=== PATIENT | male | born 1960 | race Two or more races ===

== ENCOUNTER 2019-06-14 14:08 | Emergency (ER) | payer SELFPAY ==
[~2019-06-14] VITALS: Ht 165.1 cm; Wt 99.8 kg
[2019-06-14 14:22] VITALS: BP 133/88
[2019-06-14] MEDS ORDERED: SODIUM CHLORIDE 0.9% 1,000 ML IV ONE (15:15)
[2019-06-14] MEDS ORDERED: KETOROLAC TROMETH 30 MG/ML 1ML VIAL IV ONE (15:15)
[2019-06-14 15:35] LABS: Urine Bacteria NONE SEEN /hpf (None Seen); Urine Blood Negative /uL (Negative); Urine Mucus FEW (None Seen); Urine Specific Gravity 1.039 (1.001-1.035); Urine WBC 1 /hpf (0 - 3)
[2019-06-14] MEDS ORDERED: LORazepam 0.5 MG TAB ONE (15:45)
[2019-06-14] MEDS ORDERED: LORazepam 0.5 MG TAB PO ONE (15:45)
== END 2019-06-14 16:40 | disposition left against medical advice (07) ==
LOC: ER 14:08
DX: F41.9 Anxiety disorder, unspecified (principal); R42 Dizziness and giddiness; E78.5 Hyperlipidemia, unspecified; F17.210 Nicotine dependence, cigarettes, uncomplicated; Z88.0 Allergy status to penicillin; Z53.29 Procedure and treatment not carried out because of patient's decision for other reasons
CPT/HCPCS: 81001; 93005

== ENCOUNTER 2020-04-29 01:16 | Emergency (ER) | payer MEDICAID, OTHER ==
[~2020-04-29] VITALS: Ht 172.7 cm; Wt 81.6 kg
[2020-04-29 03:03] VITALS: BP 124/84
[2020-04-29 03:41] LABS: Basophils # (auto) 0.1 10 ^3/uL (0-0.2); Basophils % (auto) 0.8 % (0.0-2.0); Eosinophils # (auto) 0.2 10 ^3/uL (0-0.8); Eosinophils % (auto) 2.5 % (0.0-7.0); Hematocrit 47.9 % (41.0-53.0); Hemoglobin 16.1 g/dL (13.5-17.5); Lymphocytes # (auto) 2.3 10 ^3/uL (0.4-5.4); Lymphocytes % (auto) 36.2 % (10.0-50.0); Mean Corpuscular Hemoglobin 30.8 pg (28.0-32.0); Mean Corpuscular Hgb Conc. 33.7 g/dL (32.0-36.0); Mean Corpuscular Volume 91.4 fL (80.0-100.0); Monocytes # (auto) 0.6 10 ^3/uL (0-1.3); Neutrophils # (auto) 3.3 10 ^3/uL (1.6-8.6); Neutrophils % (auto) 51.5 % (37.0-80.0); Nucleated Red Blood Cells % 5.6 %; Platelet Count (auto) 180 10^3/uL (140-450); Red Blood Cells 5.23 10^6/uL (4.5-5.90); Red Cell Distribution Width 12.8 % (11.8-14.3); White Blood Cell 6.4 10^3/uL (4.4-10.8)
[2020-04-29 03:47] LABS: Urine Bacteria NONE SEEN /hpf (None Seen); Urine Blood Negative /uL (Negative); Urine Mucus FEW (None Seen); Urine Specific Gravity 1.018 (1.001-1.035); Urine WBC <1 /hpf (0 - 3)
[2020-04-29 03:56] LABS: INR 1.09 (0.9-1.15); Partial Thromboplastin Time 29.7 sec (23.0-31.2)
[2020-04-29 03:57] LABS: Albumin 3.9 g/dL (3.4-5.0); Calcium 8.5 mg/dL (8.5-10.1); Potassium 3.8 mmol/L (3.5-5.1)
[2020-04-29 04:01] LABS: BUN/Creatinine Ratio 9.4
[2020-04-29] MEDS ORDERED: HYDROcodone-ACET 5/325MG TAB PO ONE (05:00)
== END 2020-04-29 05:01 | disposition home or self-care (01) ==
LOC: EDBD 01:16 → EDUNIT# 01:16 → ER 01:21
DX: J01.00 Acute maxillary sinusitis, unspecified (principal); M47.812 Spondylosis without myelopathy or radiculopathy, cervical region
CPT/HCPCS: 36415; 70450; 80053; 81001; 85025; 85610; 85730

== ENCOUNTER 2020-05-26 15:17 | Emergency (ER) | payer MEDICAID, OTHER ==
[~2020-05-26] VITALS: Ht 167.6 cm; Wt 93.4 kg
[2020-05-26 16:55] LABS: Basophils # (auto) 0.1 10 ^3/uL (0-0.2); Basophils % (auto) 1.1 % (0.0-2.0); Eosinophils # (auto) 0.1 10 ^3/uL (0-0.8); Eosinophils % (auto) 2.2 % (0.0-7.0); Hematocrit 48.9 % (41.0-53.0); Hemoglobin 16.8 g/dL (13.5-17.5); Lymphocytes # (auto) 2.4 10 ^3/uL (0.4-5.4); Lymphocytes % (auto) 37.7 % (10.0-50.0); Mean Corpuscular Hemoglobin 31.4 pg (28.0-32.0); Mean Corpuscular Hgb Conc. 34.3 g/dL (32.0-36.0); Mean Corpuscular Volume 91.4 fL (80.0-100.0); Monocytes # (auto) 0.6 10 ^3/uL (0-1.3); Monocytes % (auto) 9.3 % (0.0-12.0); Neutrophils # (auto) 3.1 10 ^3/uL (1.6-8.6); Neutrophils % (auto) 49.7 % (37.0-80.0); Nucleated Red Blood Cells % 0.1 %; Platelet Count (auto) 178 10^3/uL (140-450); Red Blood Cells 5.35 10^6/uL (4.5-5.90); White Blood Cell 6.2 10^3/uL (4.4-10.8)
[2020-05-26 17:12] LABS: Calcium 8.4 mg/dL (8.5-10.1); Potassium 3.8 mmol/L (3.5-5.1)
[2020-05-26 17:17] LABS: BUN/Creatinine Ratio 14.9; Bilirubin, Total 0.5 mg/dL (0.2-1.0); Total Protein 7.4 g/dL (6.4-8.2); Uric Acid 6.2 mg/dL (3.5-7.2)
[2020-05-26 18:01] VITALS: BP 147/93
== END 2020-05-26 18:04 | disposition home or self-care (01) ==
LOC: ER 15:17
DX: M13.871 Other specified arthritis, right ankle and foot (principal); R74.8 Abnormal levels of other serum enzymes; E78.5 Hyperlipidemia, unspecified; Z88.0 Allergy status to penicillin
CPT/HCPCS: 36415; 73630; 80053; 84550; 85025; 93971

== ENCOUNTER 2020-08-20 18:31 | Emergency (ER) | payer OTHER ==
[~2020-08-20] VITALS: Ht 167.6 cm; Wt 95.3 kg
[2020-08-20 18:55] VITALS: BP 157/95
[2020-08-20 23:04] LABS: Basophils # (auto) 0.1 10 ^3/uL (0-0.2); Basophils % (auto) 1.2 % (0.0-2.0); Eosinophils # (auto) 0.2 10 ^3/uL (0-0.8); Hematocrit 46.4 % (41.0-53.0); Lymphocytes # (auto) 2.8 10 ^3/uL (0.4-5.4); Lymphocytes % (auto) 44.5 % (10.0-50.0); Mean Corpuscular Hemoglobin 31.8 pg (28.0-32.0); Mean Corpuscular Hgb Conc. 34.5 g/dL (32.0-36.0); Mean Corpuscular Volume 92.4 fL (80.0-100.0); Monocytes # (auto) 0.6 10 ^3/uL (0-1.3); Monocytes % (auto) 9.2 % (0.0-12.0); Neutrophils # (auto) 2.6 10 ^3/uL (1.6-8.6); Neutrophils % (auto) 42.1 % (37.0-80.0); Nucleated Red Blood Cells % 0.2 %; Platelet Count (auto) 188 10^3/uL (140-450); Red Blood Cells 5.02 10^6/uL (4.5-5.90); White Blood Cell 6.2 10^3/uL (4.4-10.8)
[2020-08-20 23:20] LABS: Albumin 3.9 g/dL (3.4-5.0); Anion Gap 5 (5-15); BUN/Creatinine Ratio 15.6; Blood Urea Nitrogen 12 mg/dL (7-18); Carbon Dioxide 27 mmol/L (21-32); Chloride 109 mmol/L (98-107); GFR African American 133 mL/min; GFR Non-African American 110 mL/min; Glucose 83 mg/dL (74-106); Potassium 3.7 mmol/L (3.5-5.1); Sodium 141 mmol/L (136-145)
[2020-08-20 23:23] LABS: INR 1.07 (0.9-1.15)
[2020-08-20 23:25] LABS: Alanine Aminotransferase 42 U/L (16-61); Alkaline Phosphatase 111 U/L (45-117); Aspartate Aminotransferase 27 U/L (15-37); Bilirubin, Total 0.8 mg/dL (0.2-1.0); Total Protein 7.2 g/dL (6.4-8.2)
== END 2020-08-21 01:16 | disposition home or self-care (01) ==
LOC: ER 18:32
DX: G62.9 Polyneuropathy, unspecified (principal); E78.5 Hyperlipidemia, unspecified; Z88.0 Allergy status to penicillin; Z87.891 Personal history of nicotine dependence
CPT/HCPCS: 36415; 73590; 80053; 84484; 85025; 85379; 85610; 93971; 99285; J7030

== ENCOUNTER 2020-12-17 16:10 | Emergency (ER) | payer OTHER ==
[~2020-12-17] VITALS: Ht 167.6 cm; Wt 95.3 kg
[2020-12-17 16:12] VITALS: BP 150/101
== END 2020-12-17 18:24 | disposition home or self-care (01) ==
LOC: ER 16:13
DX: M79.671 Pain in right foot (principal); G89.29 Other chronic pain
CPT/HCPCS: 93971

== ENCOUNTER 2021-04-20 12:30 | Emergency (ER) | payer OTHER ==
[~2021-04-20] VITALS: Ht 165.1 cm; Wt 99.8 kg
[2021-04-20 12:37] VITALS: BP 133/89
[2021-04-20 13:36] LABS: Basophils # (auto) 0 10 ^3/uL (0-0.2); Eosinophils # (auto) 0.2 10 ^3/uL (0-0.8); Eosinophils % (auto) 3.6 % (0.0-7.0); Hematocrit 46.7 % (41.0-53.0); Hemoglobin 16.5 g/dL (13.5-17.5); Lymphocytes # (auto) 1.9 10 ^3/uL (0.4-5.4); Lymphocytes % (auto) 41.8 % (10.0-50.0); Mean Corpuscular Hemoglobin 32.4 pg (28.0-32.0); Mean Corpuscular Hgb Conc. 35.2 g/dL (32.0-36.0); Monocytes # (auto) 0.5 10 ^3/uL (0-1.3); Monocytes % (auto) 10.6 % (0.0-12.0); Nucleated Red Blood Cells % 0.1 %; Red Blood Cells 5.07 10^6/uL (4.5-5.90); Red Cell Distribution Width 13.5 % (11.8-14.3); White Blood Cell 4.6 10^3/uL (4.4-10.8)
[2021-04-20 13:52] LABS: Acetaminophen < 2.0 ug/mL (10-30); Albumin 3.7 g/dL (3.4-5.0); Calcium 8.6 mg/dL (8.5-10.1); Potassium 3.9 mmol/L (3.5-5.1); Salicylate < 1.7 mg/dL (2.8-20.0)
[2021-04-20 13:57] LABS: BUN/Creatinine Ratio 12.5; Bilirubin, Total 0.8 mg/dL (0.2-1.0); Total Protein 7.5 g/dL (6.4-8.2)
== END 2021-04-20 16:53 | disposition home or self-care (01) ==
LOC: ER 12:30
DX: T42.4X1A Poisoning by benzodiazepines, accidental (unintentional), initial encounter (principal); M79.604 Pain in right leg; R53.1 Weakness; E78.5 Hyperlipidemia, unspecified; Z88.0 Allergy status to penicillin; Z87.891 Personal history of nicotine dependence; Y92.9 Unspecified place or not applicable
CPT/HCPCS: 36415; 80053; 80329; 85025; 93005; 93971

== ENCOUNTER 2021-07-07 15:19 | Emergency (ER) | payer MEDICAID, OTHER ==
[~2021-07-07] VITALS: Ht 167.6 cm; Wt 99.8 kg
[2021-07-07 16:04] LABS: Urine Bacteria NONE SEEN /hpf (None Seen); Urine Blood Negative /uL (Negative); Urine Mucus FEW (None Seen); Urine Specific Gravity 1.035 (1.001-1.035); Urine WBC 1 /hpf (0 - 3)
[2021-07-07 16:36] LABS: Basophils # (auto) 0.1 10 ^3/uL (0-0.2); Basophils % (auto) 0.9 % (0.0-2.0); Eosinophils # (auto) 0.1 10 ^3/uL (0-0.8); Eosinophils % (auto) 1.7 % (0.0-7.0); Hematocrit 49.4 % (41.0-53.0); Hemoglobin 16.9 g/dL (13.5-17.5); Lymphocytes # (auto) 2.7 10 ^3/uL (0.4-5.4); Lymphocytes % (auto) 39.5 % (10.0-50.0); Mean Corpuscular Hemoglobin 31.5 pg (28.0-32.0); Mean Corpuscular Hgb Conc. 34.2 g/dL (32.0-36.0); Mean Corpuscular Volume 92.2 fL (80.0-100.0); Monocytes # (auto) 0.6 10 ^3/uL (0-1.3); Monocytes % (auto) 8.2 % (0.0-12.0); Neutrophils # (auto) 3.4 10 ^3/uL (1.6-8.6); Neutrophils % (auto) 49.7 % (37.0-80.0); Red Blood Cells 5.35 10^6/uL (4.5-5.90); White Blood Cell 6.9 10^3/uL (4.4-10.8)
[2021-07-07 16:54] LABS: Albumin 3.9 g/dL (3.4-5.0); Calcium 8.7 mg/dL (8.5-10.1); Potassium 3.7 mmol/L (3.5-5.1)
[2021-07-07 16:59] LABS: BUN/Creatinine Ratio 12.6; Total Protein 7.6 g/dL (6.4-8.2)
[2021-07-07 19:00] VITALS: BP 126/87
== END 2021-07-07 19:04 | disposition home or self-care (01) ==
LOC: ER 15:19
DX: R10.32 Left lower quadrant pain (principal); E78.5 Hyperlipidemia, unspecified; Z88.0 Allergy status to penicillin; Z87.891 Personal history of nicotine dependence
CPT/HCPCS: 36415; 74176; 80053; 81001; 83690; 85025

== ENCOUNTER 2021-11-16 21:14 | Emergency (ER) | payer MEDICAID, OTHER ==
[~2021-11-16] VITALS: Ht 170.2 cm; Wt 77.1 kg
[2021-11-16 21:23] VITALS: BP 151/96
== END 2021-11-17 02:51 | disposition left against medical advice (07) ==
LOC: ER 21:19
DX: M79.661 Pain in right lower leg (principal); F41.9 Anxiety disorder, unspecified; E78.5 Hyperlipidemia, unspecified; Z88.0 Allergy status to penicillin
CPT/HCPCS: 93971

== ENCOUNTER 2021-11-23 11:30 | Inpatient (IN) | payer OTHER ==
[~2021-11-23] VITALS: Ht 167.6 cm; Wt 98.0 kg
[2021-11-23] MEDS ORDERED: ONDANSETRON HCL 4 MG/2 ML VIAL IV ONE (12:00)
[2021-11-23] MEDS ORDERED: SODIUM CHLORIDE 0.9% 1,000 ML IV ONE (12:00)
[2021-11-23] MEDS ORDERED: diphenhdrAMINE HCL 50 MG/1 ML VL IV ONE (12:15)
[2021-11-23] MEDS ORDERED: diphenhdrAMINE HCL 25 MG CAP PO ONE (12:15)
[2021-11-23 13:24] LABS: Basophils # (auto) 0.1 10 ^3/uL (0-0.2); Eosinophils # (auto) 0.1 10 ^3/uL (0-0.8); Eosinophils % (auto) 1.1 % (0.0-7.0); Hematocrit 50.8 % (41.0-53.0); Hemoglobin 17.6 g/dL (13.5-17.5); Lymphocytes # (auto) 2.6 10 ^3/uL (0.4-5.4); Lymphocytes % (auto) 31.7 % (10.0-50.0); Mean Corpuscular Hemoglobin 31.9 pg (28.0-32.0); Mean Corpuscular Hgb Conc. 34.7 g/dL (32.0-36.0); Mean Corpuscular Volume 92.1 fL (80.0-100.0); Monocytes # (auto) 0.8 10 ^3/uL (0-1.3); Monocytes % (auto) 9.9 % (0.0-12.0); Neutrophils # (auto) 4.6 10 ^3/uL (1.6-8.6); Neutrophils % (auto) 56.3 % (37.0-80.0); Nucleated Red Blood Cells % 0.1 %; Red Blood Cells 5.52 10^6/uL (4.5-5.90); Red Cell Distribution Width 13.7 % (11.8-14.3); White Blood Cell 8.1 10^3/uL (4.4-10.8)
[2021-11-23 13:40] LABS: Albumin 4.5 g/dL (3.4-5.0); BUN/Creatinine Ratio 13.4; Calcium 9.4 mg/dL (8.5-10.1); Potassium 3.9 mmol/L (3.5-5.1)
[2021-11-23 13:42] LABS: Urine Bacteria NONE SEEN /hpf (None Seen); Urine Blood Negative /uL (Negative); Urine Hyaline Cast MANY /lpf (0 - 2); Urine Mucus FEW (None Seen); Urine Specific Gravity 1.038 (1.001-1.035); Urine WBC 5 /hpf (0 - 3)
[2021-11-23 13:45] LABS: Bilirubin, Total 1.6 mg/dL (0.2-1.0); Total Protein 8.1 g/dL (6.4-8.2)
[2021-11-23] MEDS ORDERED: traMADol HCL 50 MG TAB PO ONE (13:45)
[2021-11-23] MEDS ORDERED: IOHEXOL 300 MG/ML 100ML BOTTLE IJ ONE (14:11)
[2021-11-23] MEDS ORDERED: MORPHINE SULFATE INJECTION 2 MG/ML SYRG IV PRN (16:45)
[2021-11-23] MEDS ORDERED: NITROGLYCERIN 0.4 MG SL TAB SL PRN (16:45)
[2021-11-23] MEDS ORDERED: DOCUSATE SOD 100 MG CAP PO PRN (18:30)
[2021-11-23] MEDS ORDERED: TEMAZEPAM 15 MG CAP PO PRN (18:30)
[2021-11-23] MEDS ORDERED: LORazepam 0.5 MG TAB PO PRN (18:30)
[2021-11-23] MEDS ORDERED: HYDROcodone-ACET 5/325MG TAB PO PRN (18:30)
[2021-11-23] MEDS: SODIUM CHLORIDE 0.9% 1,000 ML IV SCH (18:42)
[2021-11-23] MEDS ORDERED: hydrOXYzine HCL 25 MG/ML VL IM PRN (18:45)
[2021-11-23] MEDS: ACETAMINOPHEN 325 MG TAB PO PRN (18:45)
[2021-11-23 19:01] LABS: Amphetamine Screen, Urine NEGATIVE (NEGATIVE); Barbiturate Scree,Urine NEGATIVE (NEGATIVE); Benzodiazephine Screen, Urine NEGATIVE (NEGATIVE); Cannabinoid Screen, Urine NEGATIVE (NEGATIVE); Cocaine Screen, Urine NEGATIVE (NEGATIVE); Opiate Scree,Urine NEGATIVE (NEGATIVE); Phencyclidine Screen, Urine NEGATIVE (NEGATIVE)
[2021-11-23] MEDS ORDERED: ATOR40TA52 PO (21:59)
[2021-11-23] MEDS ORDERED: TRAM-711 PO (21:59)
[2021-11-23] MEDS ORDERED: PEN400T PO (21:59)
[2021-11-23] MEDS ORDERED: APIX5TAB PO (21:59)
[2021-11-23] MEDS: hydrOXYzine 25 MG TAB or CAP PO PRN (22:46)
[2021-11-23 23:22] VITALS: BP 134/87
[2021-11-23] MEDS ORDERED: ASPI-543 PO (23:45)
[2021-11-23] MEDS ORDERED: TAMS0.4C36 PO (23:45)
[2021-11-23] MEDS ORDERED: GABA400C PO (23:45)
[2021-11-24] VITALS (8 sets, daily range): BP systolic 126–145; BP diastolic 74–95
[2021-11-24] MEDS: ACETAMINOPHEN 325 MG TAB PO PRN (00:40)
[2021-11-24] MEDS: SODIUM CHLORIDE 0.9% 1,000 ML IV SCH (00:52)
[2021-11-24] MEDS: ONDANSETRON HCL 4 MG/2 ML VIAL IV PRN ×3 (02:45→17:27)
[2021-11-24] MEDS: hydrOXYzine 25 MG TAB or CAP PO PRN (05:17)
[2021-11-24 09:16] LABS: Basophils # (auto) 0.1 10 ^3/uL (0-0.2); Eosinophils # (auto) 0.1 10 ^3/uL (0-0.8); Eosinophils % (auto) 1.8 % (0.0-7.0); Hematocrit 45.8 % (41.0-53.0); Hemoglobin 15.9 g/dL (13.5-17.5); Lymphocytes % (auto) 36.3 % (10.0-50.0); Mean Corpuscular Hemoglobin 32.1 pg (28.0-32.0); Mean Corpuscular Hgb Conc. 34.8 g/dL (32.0-36.0); Mean Corpuscular Volume 92.3 fL (80.0-100.0); Monocytes # (auto) 0.4 10 ^3/uL (0-1.3); Monocytes % (auto) 6.9 % (0.0-12.0); Nucleated Red Blood Cells % 0.2 %; Red Blood Cells 4.96 10^6/uL (4.5-5.90); Red Cell Distribution Width 13.6 % (11.8-14.3); White Blood Cell 5.5 10^3/uL (4.4-10.8)
[2021-11-24 09:54] LABS: Albumin 3.5 g/dL (3.4-5.0); Potassium 4.1 mmol/L (3.5-5.1)
[2021-11-24 10:02] LABS: Bilirubin, Total 1.2 mg/dL (0.2-1.0); Calcium 7.9 mg/dL (8.5-10.1); Total Protein 6.7 g/dL (6.4-8.2)
[2021-11-24] MEDS ORDERED: traMADol HCL 50 MG TAB PO PRN ×2 (11:30→11:45)
[2021-11-24] MEDS ORDERED: APIXABAN 5 MG TAB PO SCH (12:00)
[2021-11-24 14:44] LABS: Cholesterol 95 mg/dL (< 200); Triglycerides 99 mg/dL (< 150)
[2021-11-24 14:47] LABS: HDL Cholesterol 34 mg/dL (40-59); LDL Cholesterol 50 mg/dL (< 100)
[2021-11-24] MEDS ORDERED: HYDR1CAP27 PO (16:00)
[2021-11-24] MEDS ORDERED: DULO20CA PO (16:00)
[2021-11-24] MEDS ORDERED: TAMSULOSIN HYDROCHLORIDE 0.4 MG CAP PO SCH (18:00)
[2021-11-24] MEDS ORDERED: GABAPENTIN 400 MG CAP PO SCH (22:00)
== END 2021-11-24 17:50 | disposition home or self-care (01) | DRG 111 ==
LOC: ER 11:30 → TELE 16:45 → TELE-WESTW 22:01
PROVIDERS: ADMIT Internal Medicine; ATTEND Internal Medicine
DX: R42 Dizziness and giddiness (principal); E78.5 Hyperlipidemia, unspecified; R07.9 Chest pain, unspecified; F32.A Depression, unspecified; G89.29 Other chronic pain; M19.90 Unspecified osteoarthritis, unspecified site; Z20.822 Contact with and (suspected) exposure to COVID-19; R51.9 Headache, unspecified; F41.0 Panic disorder [episodic paroxysmal anxiety]; Z79.01 Long term (current) use of anticoagulants; Z80.9 Family history of malignant neoplasm, unspecified; Z83.3 Family history of diabetes mellitus; Z86.718 Personal history of other venous thrombosis and embolism; Z87.891 Personal history of nicotine dependence; Z88.0 Allergy status to penicillin
CPT/HCPCS: 36415; 70450; 71275; 80053; 80061; 80307; 81001; 83880; 84484; 85025; 85379; 87081; 87426; 93005; 93306; 93886; 96374; 96375; 97163; G0378; J2405

== ENCOUNTER 2022-02-24 19:06 | Emergency (ER) | payer OTHER ==
[~2022-02-24] VITALS: Ht 167.6 cm; Wt 98.4 kg
[~2022-02-24 19:06] MED LIST: APIX5TAB PO; ASPI-543 PO; ATOR40TA52 PO; DULO20CA PO; GABA400C PO; HYDR1CAP27 PO; PEN400T PO; TAMS0.4C36 PO; TRAM-711 PO
[2022-02-24 22:19] VITALS: BP 124/93
== END 2022-02-24 22:40 | disposition home or self-care (01) ==
LOC: ER 19:11
DX: R25.2 Cramp and spasm (principal); M79.605 Pain in left leg; F32.9 Major depressive disorder, single episode, unspecified; E78.5 Hyperlipidemia, unspecified; Z87.891 Personal history of nicotine dependence
CPT/HCPCS: 93971

== ENCOUNTER 2022-04-27 12:29 | Emergency (ER) | payer OTHER ==
[~2022-04-27] VITALS: Ht 170.2 cm; Wt 95.4 kg
[2022-04-27 14:19] LABS: Basophils # (auto) 0.1 10 ^3/uL (0-0.2); Eosinophils # (auto) 0.2 10 ^3/uL (0-0.8); Eosinophils % (auto) 2.7 % (0.0-7.0); Hematocrit 43.6 % (41.0-53.0); Hemoglobin 14.6 g/dL (13.5-17.5); Lymphocytes # (auto) 2.1 10 ^3/uL (0.4-5.4); Lymphocytes % (auto) 28.8 % (10.0-50.0); Mean Corpuscular Hgb Conc. 33.4 g/dL (32.0-36.0); Mean Corpuscular Volume 92.8 fL (80.0-100.0); Monocytes # (auto) 0.6 10 ^3/uL (0-1.3); Monocytes % (auto) 8.4 % (0.0-12.0); Neutrophils # (auto) 4.3 10 ^3/uL (1.6-8.6); Neutrophils % (auto) 59.1 % (37.0-80.0); Nucleated Red Blood Cells % 0.1 %; Red Cell Distribution Width 12.6 % (11.8-14.3); White Blood Cell 7.2 10^3/uL (4.4-10.8)
[2022-04-27 14:42] LABS: Albumin 3.6 g/dL (3.4-5.0); Calcium 8.5 mg/dL (8.5-10.1); Potassium 4.3 mmol/L (3.5-5.1)
[2022-04-27 14:46] LABS: BUN/Creatinine Ratio 13.1; Bilirubin, Total 0.5 mg/dL (0.2-1.0); Total Protein 7.1 g/dL (6.4-8.2)
[2022-04-27] MEDS ORDERED: SULF400T11 PO (14:52)
[2022-04-27 15:00] VITALS: BP 118/64
[2022-04-27 15:49] LABS: Urine Bacteria FEW /hpf (None Seen); Urine Blood 3+ /uL (Negative); Urine Mucus FEW (None Seen); Urine Specific Gravity 1.027 (1.001-1.035); Urine WBC 121 /hpf (0 - 3)
== END 2022-04-27 15:40 | disposition home or self-care (01) ==
LOC: ER 12:29
DX: R31.9 Hematuria, unspecified (principal); N40.0 Benign prostatic hyperplasia without lower urinary tract symptoms; E78.5 Hyperlipidemia, unspecified; Z87.891 Personal history of nicotine dependence; Z79.82 Long term (current) use of aspirin; Z79.899 Other long term (current) drug therapy; Z88.0 Allergy status to penicillin
CPT/HCPCS: 36415; 74176; 80053; 81001; 84484; 85025

== ENCOUNTER → 2022-11-07 | Emergency (ER) | payer OTHER ==
[~2022-11-07] VITALS: Ht 170.2 cm; Wt 100.0 kg
[~2022-11-07] MED LIST changes: +SULF400T11 PO
[2022-11-07 10:20] VITALS: BP 115/88
[2022-11-07 10:50] LABS: Urine WBC None Seen /hpf (0 - 3)
[2022-11-07 11:04] LABS: Urine Bacteria NONE SEEN /hpf (None Seen); Urine Blood Negative /uL (Negative); Urine Hyaline Cast FEW /lpf (0 - 2); Urine Specific Gravity 1.011 (1.001-1.035)
== END | disposition left against medical advice (07) ==
LOC: ER 09:58
DX: R35.0 Frequency of micturition (principal); R10.30 Lower abdominal pain, unspecified; M79.671 Pain in right foot; Z53.21 Procedure and treatment not carried out due to patient leaving prior to being seen by health care provider
CPT/HCPCS: 81001; 93005

== ENCOUNTER 2023-08-07 17:27 | Emergency (ER) | payer OTHER ==
[~2023-08-07] VITALS: Ht 167.6 cm; Wt 103.2 kg
[~2023-08-07 17:27] MED LIST changes: +PANT40TA2 PO
[2023-08-07 18:15] LABS: Urine Bacteria NONE SEEN /hpf (None Seen); Urine Blood Negative /uL (Negative); Urine Clarity Clear (Clear); Urine Color Yellow (Yellow); Urine Mucus FEW (None Seen); Urine Protein, UAD Negative (Negative); Urine Specific Gravity 1.028 (1.001-1.035); Urine Urobilinogen Normal (Negative); Urine WBC 1 /hpf (0 - 3); Urine pH 5.5 (5.0-8.0)
[2023-08-07 22:07] LABS: Alanine Aminotransferase 51 U/L (7-40); Alkaline Phosphatase 100 U/L (46-116); Basophils # (auto) 0.1 10 ^3/uL (0-0.2); Basophils % (auto) 0.8 % (0.0-2.0); Eosinophils # (auto) 0.2 10 ^3/uL (0-0.8); Eosinophils % (auto) 2.3 % (0.0-7.0); Hematocrit 48.1 % (41.0-53.0); Hemoglobin 16.7 g/dL (13.5-17.5); Lymphocytes # (auto) 2.5 10 ^3/uL (0.4-5.4); Lymphocytes % (auto) 30.5 % (10.0-50.0); Mean Corpuscular Hgb Conc. 34.6 g/dL (32.0-36.0); Mean Corpuscular Volume 92.4 fL (80.0-100.0); Monocytes # (auto) 0.9 10 ^3/uL (0-1.3); Monocytes % (auto) 11.4 % (0.0-12.0); Neutrophils # (auto) 4.6 10 ^3/uL (1.6-8.6); Nucleated Red Blood Cells % 0.1 %; Red Blood Cells 5.21 10^6/uL (4.5-5.90); White Blood Cell 8.3 10^3/uL (4.4-10.8)
[2023-08-07 22:08] LABS: Albumin 4.5 g/dL (3.2-4.8); Anion Gap 8 (5-15); Aspartate Aminotransferase 40 U/L (13-40); BUN/Creatinine Ratio 11.8 (10.0-20.0); Bilirubin, Total 1.1 mg/dL (0.2-1.0); Blood Urea Nitrogen 11 mg/dL (9-23); Calcium 8.8 mg/dL (8.7-10.4); Carbon Dioxide 21 mmol/L (20-30); Chloride 108 mmol/L (98-107); Glucose 99 mg/dL (74-106); Lipase 42 U/L (12-53); Potassium 3.8 mmol/L (3.5-5.1); Sodium 137 mmol/L (136-145); Total Protein 7.3 g/dL (5.7-8.2)
[2023-08-07 22:30] VITALS: BP 145/80; PULSE 76; RESP 18; TEMP 98.6; O2SAT 98
[2023-08-07] MEDS ORDERED: AUG875T PO (22:30)
[2023-08-07] MEDS ORDERED: ZOFR4T PO (22:30)
[2023-08-07] MEDS ORDERED: HYDROcodone-ACET 5/325MG TAB PO ONE (22:30)
[2023-08-07] MEDS ORDERED: DexAMETHasone SOD PHOS 10MG/1ML VIAL INJ IM ONE (22:30)
[2023-08-07] MEDS ORDERED: HYDR-4902 PO (22:30)
== END 2023-08-07 22:49 | disposition home or self-care (01) ==
LOC: ER 17:27
DX: R10.9 Unspecified abdominal pain (principal); K57.30 Diverticulosis of large intestine without perforation or abscess without bleeding; N40.0 Benign prostatic hyperplasia without lower urinary tract symptoms; R16.1 Splenomegaly, not elsewhere classified; M51.36 Other intervertebral disc degeneration, lumbar region; I10 Essential (primary) hypertension; E78.5 Hyperlipidemia, unspecified; Z87.891 Personal history of nicotine dependence; Z79.82 Long term (current) use of aspirin; Z79.2 Long term (current) use of antibiotics; Z79.899 Other long term (current) drug therapy; Z88.0 Allergy status to penicillin
CPT/HCPCS: 36415; 74176; 80053; 81001; 83690; 85025; 96372; 99285; J1100

== ENCOUNTER 2023-08-17 18:10 | Emergency (ER) | payer OTHER ==
[~2023-08-17] VITALS: Ht 167.6 cm; Wt 103.2 kg
[~2023-08-17 18:10] MED LIST changes: +AUG875T PO; +HYDR-4902 PO; +ZOFR4T PO
[2023-08-17 18:29] VITALS: BP 138/82; PULSE 87; RESP 18; O2SAT 95
[2023-08-17 19:12] LABS: Basophils # (auto) 0.1 10 ^3/uL (0-0.2); Eosinophils # (auto) 0.2 10 ^3/uL (0-0.8); Hematocrit 50.3 % (41.0-53.0); Hemoglobin 16.9 g/dL (13.5-17.5); Lymphocytes # (auto) 2.5 10 ^3/uL (0.4-5.4); Lymphocytes % (auto) 26.3 % (10.0-50.0); Mean Corpuscular Hemoglobin 32.1 pg (28.0-32.0); Mean Corpuscular Hgb Conc. 33.5 g/dL (32.0-36.0); Mean Corpuscular Volume 95.6 fL (80.0-100.0); Monocytes % (auto) 9.9 % (0.0-12.0); Neutrophils # (auto) 5.9 10 ^3/uL (1.6-8.6); Neutrophils % (auto) 60.8 % (37.0-80.0); Red Blood Cells 5.26 10^6/uL (4.5-5.90); Red Cell Distribution Width 13.1 % (11.8-14.3); White Blood Cell 9.7 10^3/uL (4.4-10.8)
[2023-08-17 19:28] LABS: Alanine Aminotransferase 82 U/L (7-40); Alkaline Phosphatase 164 U/L (46-116); Anion Gap 9 (5-15); BUN/Creatinine Ratio 7.9 (10.0-20.0); Blood Urea Nitrogen 7 mg/dL (9-23); Calcium 8.7 mg/dL (8.7-10.4); Carbon Dioxide 21 mmol/L (20-30); Chloride 106 mmol/L (98-107); Glucose 113 mg/dL (74-106); Potassium 3.7 mmol/L (3.5-5.1); Sodium 136 mmol/L (136-145)
[2023-08-17 19:29] LABS: Albumin 4.4 g/dL (3.2-4.8); Aspartate Aminotransferase 46 U/L (13-40); Bilirubin, Total 0.8 mg/dL (0.2-1.0); Total Protein 7.4 g/dL (5.7-8.2)
== END 2023-08-18 00:37 | disposition left against medical advice (07) ==
LOC: ER 18:10
DX: M54.2 Cervicalgia (principal); Z53.21 Procedure and treatment not carried out due to patient leaving prior to being seen by health care provider
CPT/HCPCS: 36415; 80053; 85025

== ENCOUNTER 2024-04-12 12:10 | Emergency (ER) | payer OTHER ==
[~2024-04-12] VITALS: Ht 165.1 cm; Wt 103.0 kg
[~2024-04-12 12:10] MED LIST changes: +ACE3T PO
[2024-04-12 12:27] VITALS: BP 125/94; PULSE 90; RESP 18; O2SAT 95
== END 2024-04-12 14:20 | disposition home or self-care (01) ==
LOC: ER 12:16
DX: M79.662 Pain in left lower leg (principal); M19.90 Unspecified osteoarthritis, unspecified site; F32.A Depression, unspecified; I10 Essential (primary) hypertension; E78.5 Hyperlipidemia, unspecified; Z87.891 Personal history of nicotine dependence; Z86.718 Personal history of other venous thrombosis and embolism; Z79.899 Other long term (current) drug therapy; Z88.0 Allergy status to penicillin
CPT/HCPCS: 93971

== ENCOUNTER 2025-05-27 10:07 | Emergency (ER) | payer OTHER ==
[~2025-05-27] VITALS: Ht 165.1 cm; Wt 105.5 kg
[~2025-05-27 10:07] MED LIST changes: -TAMS0.4C36 PO; +TAMS0.4C39 PO
--- NOTE | 2025-05-27 10:42 | ED.PDOC ---
HPI (NEURO) HPI Comments This is a 64 year old male presenting to the ED with chief complaint of headache/dizziness. Patient reports that he has been experiencing a posterior, sharp headache for the past 3 days with associated dizziness and bilateral arm pain/weakness. Patient relays that he visited his PCP today and was advised to come to the ED to be ruled out for a brain bleed due to being on Eliquis at this time. Patient denies any nausea, chest pain, SOB, fever, or chills. Chief Complaint: Dizziness Time Seen by MD: 10:40 Primary Care Provider: unknown Reviewed Notes: Nurses Notes, Medications, Allergies Information Source: Patient, Spouse Mode of Arrival: Ambulatory Severity: Moderate Headache Severity: Moderate Timing: Days Duration: Since onset Prehospital treatment: None Headache Quality: Sharp Headache Location: Occipital Weakness Location: (R) Arm, (L) Arm Onset: At rest Circumstances: Spontaneous Past Medical History PAST MEDICAL HISTORY: Arthritis, Depression, High Lipids, HTN Past Medical History (Other): Rt leg DVT Surgical History: Denies all surgeries Family History Family History: Reviewed,noncontributory to illness, Family hx of DM, Family hx of Cancer Social History Smoker: Quit Greater Than 1 Year Alcohol: Denies ETOH Use Drugs: Denies Drug Use Lives In: Home Constitutional: denies: chills, diaphoresis, fatigue, fever, malaise, sweats, weakness, others EENTM: denies: blurred vision, double vision, ear bleeding, ear discharge, ear drainage, ear pain, ear ringing, eye pain, eye redness, hearing loss, mouth pain, mouth swelling, nasal discharge, nose bleeding, nose congestion, nose pain, photophobia, tearing, throat pain, throat swelling, voice changes, others Respiratory: denies: cough, hemoptysis, orthopnea, SOB at rest, shortness of breath, SOB with excertion, stridor, wheezing, others Cardiovascular: denies: chest pain, dizzy spells, diaphoresis, Dyspnea on exertion, edema, irregular heart beat, left arm pain, lightheadedness, palpitations, PND, syncope, others Gastrointestinal: denies: abdomen distended, abdominal pain, blood streaked bowels, constipated, diarrhea, dysphagia, difficulty swallowing, hematemesis, melena, nausea, poor appetite, poor fluid intake, rectal bleeding, rectal pain, vomiting, others Genitourinary: denies: burning, dysuria, flank pain, frequency, hematuria, incontinence, penile discharge, penile sore, pain, testicle pain, testicle swelling, urgency, others Neurological: reports: dizziness, headache, weakness; denies: fainting, left sided numbness, left sided weakness, numbness, paresthesia, pre-existing deficit, right sided numbness, right sided weakness, seizure, speech problems, tingling, tremors, others Musculoskeletal: reports: others (Bilat arm pain); denies: back pain, gout, joint pain, joint swelling, muscle pain, muscle stiffness, neck pain Integumetry: denies: bruises, change in color, change in hair/nails, dryness, laceration, lesions, lumps, rash, wounds, others Allergic/Immunocompromised: denies: Difficulty Healing, Frequent Infections, Hives, Itching, others Hematologic/Lymphatic: denies: anemia, blood clots, easy bleeding, easy bruising, swollen glands, others Endocrine: denies: excessive hunger, excessive sweating, excessive thirst, excessive urination, flushing, intolerance to cold, intolerance to heat, unexplained weight gain, unexplained weight loss, others Psychiatric: denies: anxiety, bipolar disorder, depression, hopeless, panic disorder, schizophrenia, sleepless, suicidal, others All Other Systems: Reviewed and Negative Physical Exam General Appearance: No Apparent Distress, Normal HEENT: Normal ENT Inspection, Pharynx Normal, TMs Normal Neck: Full Range of Motion, Non-Tender, Normal, Normal Inspection Respiratory: Chest Non-Tender, Lungs Clear, No Accessory Muscle Use, No Respiratory Distress, Normal Breath Sounds Cardiovascular: No Edema, No JVD, No Murmur, No Gallop, Normal Peripheral Pulses, Regular Rate/Rhythm Breast Exam: Deferred Gastrointestinal: No Organomegaly, Non Tender, No Pulsatile Mass, Normal Bowel Sounds, Soft Genitalia: Deferred Pelvic: Deferred Rectal: Deferred Extremities: No calf tenderness, Normal capillary refill, Normal inspection, Normal range of motion, Non-tender, No pedal edema Musculoskeletal : Apperance: Normal Neurologic: Alert, 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 Was a procedure done?: No Differential Diagnosis (SZ) Seizure: N/A CVA: CVA, Encephalopathy, TIA General Weakness: CVA, Dehydration, Encephalopathy, Hypotension, Hypovolemia, TIA Headache: Cluster, Migraine, Intracerebral Hemorrhage, Subarachnoid Hemorrhage, Subdural Hemorrhage X-Ray, Labs, Meds, VS Vital Signs Date Time Temp Pulse Resp B/P (MAP) Pulse Ox O2 Delivery O2 Flow Rate FiO2 05/27/25 10:15 90 05/27/25 10:09 97.6 89 18 141/[address] Head: FINDINGS: There is sulcal and ventricular prominence. The brainshows normal morphology and roa-white matter differentiation, without intracranial hemorrhage, extra-axial fluid collection, mass effect or acute large vessel infarct. The ventricles are normal in size. The basal cisterns are patent. The skull and visible facial bones are intact. The paranasal sinuses, mastoid air cells and middle ear cavities are well-aerated. The soft tissues of the scalp are unremarkable. IMPRESSION: No acute intracranial abnormality. Chest XR: FINDINGS: Lines and Tubes: None Lungs: Clear Pleura: No effusion. No pneumothorax. Cardiomediastinal contours: Unremarkable Bones: Unremarkable IMPRESSION: No acute disease. Images Reviewed?: Images reviewed and evaluated by me Time of 1ST Reevaluation: 11:40 Reevaluation 1ST: Unchanged Patient Education/Counseling: Diagnosis, Treatment Family Education/Counseling: Diagnosis, Treatment Departure 1 Departure Time of Disposition: 13:29 (Patient refusing labs, medications. Patient wants to go home. Will discharge patient home.) Impression: Primary Impression: Migraine Qualified Codes: G43.109 - Migraine with aura, not intractable, without status migrainosus Disposition: HOME / SELF CARE / HOMELESS Condition: Stable Additional Instructions: Your ct scan was benign today. For pain you can take the followinam: Ibuprofen 400mg with food Noon: Acetaminophen 1000mg 4pm: Ibuprofen 400mg with food 8pm: Acetaminophen 1000mg You should follow up with your regular doctor within one week to ensure you are doing better. If your symptoms worsen or you have any other concerns then please return to the ER. Discharged With: Self Critical Care Note Critical Care Time?: No Stability Stability form required: No Heart Score Heart Score: Heart Score Response (Comments) Value History N/A 0 EKG N/A 0 Age N/A 0 Risk Factors N/A 0 Troponin N/A 0 Total 0 I personally scribed for OZZY RUSH MD ([email or web address]) on 05/27/25 at 10:42. Electronically submitted by Jacques Gary ([email or web address]). I personally scribed for OZZY RUSH MD ([email or web address]) on 05/27/25 at 12:04. Electronically submitted by Jacques Gary ([email or web address]). OZZY RUSH MD May 27, 2025 10:42
--- NOTE | 2025-05-27 10:49 | DVH ---
CHEST RADIOGRAPH Indication: dizziness Technique: Single frontal view of the chest was obtained COMPARISON: None FINDINGS: Lines and Tubes: None Lungs: Clear Pleura: No effusion. No pneumothorax. Cardiomediastinal contours: Unremarkable Bones: Unremarkable IMPRESSION: No acute disease.
--- NOTE | 2025-05-27 11:15 | DVH ---
CT HEAD WITHOUT CONTRAST INDICATION: dizziness EXAM DATE: 05/27/2025 10:31 AM COMPARISON: HEAD WITHOUT CONTRAST on DOS: 11/23/21 RADIATION DOSE: CTDIvol: 56.04 mGy, DLP: 992.32 mGy*cm PROCEDURE: CT scans of the head were obtained from the vertex to the skull base. Sagittal and coronal reconstructions were provided. All CT scans at this medical facility are performed using dose modulation techniques as appropriate t o a performed exam including the following: Automated exposure control was utilized; adjustment of th e MA and/or KV according to patient size; and use of iterative reconstruction technique. FINDINGS: There is sulcal and ventricular prominence. The brainshows normal morphology and roa-whi te matter differentiation, without intracranial hemorrhage, extra-axial fluid collection, mass effect or acute large vessel infarct. The ventricles are normal in size. The basal cisterns are patent. The skull and visible facial bones are intact. The paranasal sinuses, mastoid air cells and middle ear c avities are well-aerated. The soft tissues of the scalp are unremarkable. IMPRESSION: No acute intracranial abnormality.
[2025-05-27 13:50] VITALS: BP 128/79; PULSE 62; RESP 16; TEMP 97.6; O2SAT 95
--- NOTE | 2025-06-01 10:01 | ECG ---
[facility] Test Date: 2025-05-27 Test Time: 10:15:47 Pat Name: EMMIE DE LA ROSA Department: ED Room: Gender: M Logistics System Engineer: malcolm : 1960 Requested By: OZZY RUSH Order Number: [id number] Reading MD: Measurements Intervals [place] Rate: 90 P: 57 [place]: 154 QRS: -63 QRSD: 91 T: 45 QT: 367 QTc: 449 Interpretive Statements Sinus rhythm Left anterior fascicular block Low voltage, precordial leads Consider anterior infarct Baseline wander in lead(s) V2 Please click the below link to view image of tracing.
== END 2025-05-27 13:55 | disposition home or self-care (01) ==
LOC: ER 10:07
DX: G43.109 Migraine with aura, not intractable, without status migrainosus (principal); M19.90 Unspecified osteoarthritis, unspecified site; F32.A Depression, unspecified; I10 Essential (primary) hypertension; Z79.899 Other long term (current) drug therapy
CPT/HCPCS: 70450; 71045; 93005